=== PATIENT | female | born 1960 | race Caucasian/White ===

== ENCOUNTER 2019-07-07 10:30 | Emergency (ER) | payer OTHER ==
[~2019-07-07] VITALS: Ht 152.4 cm; Wt 44.5 kg
[2019-07-07 10:34] VITALS: BP 121/63
[2019-07-07] MEDS ORDERED: KETOROLAC 30 MG/ML VIAL IM ONE (10:50)
--- NOTE | 2019-07-07 10:50 | NUR ---
59 y/o F presents to ER c/o body aches to neck, shoulders, and arms x2 weeks. Pain level 9/10. Last medication taken was Ibuprofen last week. HOB elevated, bed in lowest position, bed rail up x1. Allergies: NKA Med hx: none
[2019-07-07 11:26] VITALS: BP 118/59
--- NOTE | 2019-07-07 11:27 | NUR ---
Patient discharged with v/s stable. Written and verbal after care instructions given and explained. Patient alert, oriented and verbalized understanding of instructions. Ambulatory with steady gait. All questions addressed prior to discharge. ID band removed. Patient advised to follow up with PMD. Rx of FLEXERIL given. Patient educated on indication of medication including possible reaction and side effects. Opportunity to ask questions provided and answered.
== END 2019-07-07 11:26 | disposition home or self-care (01) ==
LOC: MED 10:30
DX: M54.2 Cervicalgia (principal); F17.210 Nicotine dependence, cigarettes, uncomplicated; M79.10 Myalgia, unspecified site; M19.90 Unspecified osteoarthritis, unspecified site; Z98.890 Other specified postprocedural states; Z71.6 Tobacco abuse counseling
CPT/HCPCS: 96372; 99283; J1885

== ENCOUNTER 2019-07-24 11:18 | Emergency (ER) | payer OTHER ==
[~2019-07-24] VITALS: Ht 152.4 cm; Wt 44.5 kg
[2019-07-24 11:37] VITALS: BP 114/57
[2019-07-24] MEDS ORDERED: PHENAZOPYRIDINE 100 MG TAB PO ONE (12:05)
[2019-07-24] MEDS ORDERED: CIPROFLOXACIN 250 MG TAB PO ONE (12:05)
[2019-07-24] MEDS ORDERED: HYDROcodone/APAP 5/325 MG 1 TAB TAB PO ONE (12:05)
[2019-07-24 13:00] LABS: BILIRUBIN,URINE 1+ (NEGATIVE); BLOOD, URINE 3+ (NEGATIVE); LEUKOCYTE ESTERASE ,URINE TRACE (NEGATIVE); NITRITE, URINE POSITIVE (NEGATIVE); PH,URINE 5.5 (5.0-9.0); UGLUCOSE NEGATIVE (NEGATIVE)
[2019-07-24 13:05] LABS: APPEARANCE,URINE CLOUDY (CLEAR); COLOR,URINE AMBER (YELLOW)
[2019-07-24 13:07] LABS: RBC,URINE 80-100 /HPF (0-5)
[2019-07-24 13:45] VITALS: BP 112/73
--- NOTE | 2019-07-24 13:45 | NUR ---
Patient discharged with v/s stable. Written and verbal after care instructions given and explained. Patient alert, oriented and verbalized understanding of instructions. Ambulatory with steady gait. All questions addressed prior to discharge. ID band removed. Patient advised to follow up with PMD. Rx of CIPRO 250MG, NORCO 5MG-325MG, PYRIDIUM 200MG given. Patient educated on indication of medication including possible reaction and side effects. Opportunity to ask questions provided and answered.
== END 2019-07-24 13:45 | disposition home or self-care (01) ==
LOC: MED 11:18
DX: N30.90 Cystitis, unspecified without hematuria (principal); M54.5 Low back pain
CPT/HCPCS: 81001; 87086; 99284

== ENCOUNTER 2021-09-09 20:30 | Emergency (ER) | payer OTHER ==
--- NOTE | 2021-09-09 20:45 | NUR ---
CALLED TO TRIAGE, NO ANSWER
--- NOTE | 2021-09-09 21:00 | NUR ---
CALLED TO TRIAGE, NO ANSWER
== END 2021-09-09 20:45 | disposition left against medical advice (07) ==
LOC: MED 20:30
DX: M25.569 Pain in unspecified knee (principal); Z53.21 Procedure and treatment not carried out due to patient leaving prior to being seen by health care provider

== ENCOUNTER 2021-09-18 13:16 | Emergency (ER) | payer OTHER ==
[~2021-09-18] VITALS: Ht 147.3 cm; Wt 43.1 kg
[2021-09-18 13:24] VITALS: BP 116/72
[2021-09-18] MEDS ORDERED: TRAM50TA1 PO (14:23)
--- NOTE | 2021-09-18 14:53 | NUR ---
PT SEEN AND TREATED BY ANASTASIYA HERRERA, NO NURSING INTENVENTIONS PROVIDED
--- NOTE | 2021-09-18 14:54 | NUR ---
Patient discharged with v/s stable. Written and verbal after care instructions ABOUT ANKLE AND KNEE SPRAIN given and explained. Patient alert, oriented and verbalized understanding of instructions. Ambulatory with steady gait. All questions addressed prior to discharge. ID band removed. Patient advised to follow up with PMD. Rx of TRAMADOL given. Patient educated on indication of medication including possible reaction and side effects. Opportunity to ask questions provided and answered.
== END 2021-09-18 14:54 | disposition home or self-care (01) ==
LOC: MED 13:16
DX: S93.401A Sprain of unspecified ligament of right ankle, initial encounter (principal); S83.92XA Sprain of unspecified site of left knee, initial encounter; Z79.891 Long term (current) use of opiate analgesic; W01.0XXA Fall on same level from slipping, tripping and stumbling without subsequent striking against object, initial encounter; Y92.89 Other specified places as the place of occurrence of the external cause; Y93.89 Activity, other specified; Y99.8 Other external cause status
CPT/HCPCS: 73562; 73610; 73630; 99284

== ENCOUNTER 2022-02-13 20:03 | Emergency (ER) | payer OTHER ==
[~2022-02-13] VITALS: Ht 147.3 cm; Wt 43.1 kg
[~2022-02-13 20:03] MED LIST: TRAM50TA1 PO
[2022-02-13 20:23] VITALS: BP 107/56
--- NOTE | 2022-02-13 21:31 | NUR ---
Dr. Stroud examining patient.
[2022-02-13 22:12] LABS: BILIRUBIN,URINE NEGATIVE (NEGATIVE); BLOOD, URINE 2+ (NEGATIVE); LEUKOCYTE ESTERASE ,URINE 2+ (NEGATIVE); NITRITE, URINE NEGATIVE (NEGATIVE); UGLUCOSE NEGATIVE (NEGATIVE)
[2022-02-13 22:13] LABS: APPEARANCE,URINE HAZY (CLEAR); COLOR,URINE STRAW (YELLOW)
[2022-02-13 22:15] LABS: RBC,URINE NONE SEEN /HPF (0-5); WBC,URINE 20-60 /HPF (0-5)
[2022-02-13] MEDS ORDERED: CIPR500T4 PO (22:19)
[2022-02-13] MEDS ORDERED: PYR100 PO (22:19)
[2022-02-13 22:34] VITALS: BP 112/62
--- NOTE | 2022-02-13 22:34 | NUR ---
Patient discharged with v/s stable. Written and verbal after care instructions given and explained. Patient alert, oriented and verbalized understanding of instructions. Ambulatory with steady gait. All questions addressed prior to discharge. ID band removed. Patient advised to follow up with PMD. Rx of Ciprofloxacin and Pyridium given. Patient educated on indication of medication including possible reaction and side effects. Opportunity to ask questions provided and answered.
--- NOTE | 2022-02-18 11:00 | NUR ---
LATE ENTRY RECEIVED LAB RESULTS FOR POSITIVE CULTURE, ATTEMPTED TO CALL PATIENT TO NOTIFY OF PRESCRIPTION CHANGE SENT TO LISTED PHARMACY. NO ANSWER, VOICEMAIL LEFT TO CALL ED BACK. DISCREPENCY FORM FILLED AND PLACED IN BINDER.
== END 2022-02-13 22:34 | disposition home or self-care (01) ==
LOC: MED 20:03
DX: N30.90 Cystitis, unspecified without hematuria (principal); N28.89 Other specified disorders of kidney and ureter; Z79.899 Other long term (current) drug therapy
CPT/HCPCS: 81001; 87086; 99283